=== PATIENT | male | born 1965 | race Caucasian/White ===

== ENCOUNTER 2017-11-25 11:51 | Emergency (ER) | payer BC ==
[2017-11-25] MEDS ORDERED: Ketamine 50 MG/ML VIAL ONE (13:37)
[2017-11-25] MEDS ORDERED: EPINEPHrine 1 MG/10 ML Abboject SYRINGE ONE (13:42)
--- NOTE | 2017-11-25 13:47 | CT ---
CT OF THE BRAIN WITHOUT CONTRAST: Date: 11/25/17 The ventricles are normal in size for age and show no shift. No intracranial bleeding or extra-axial hematoma present. There is no sign of mass, edema, or stroke. The skull appears intact. The visible p aranasal sinuses, sphenoid sinus, and mastoid air cells are clear. IMPRESSION: No acute intracranial findings. POS: HOME
--- NOTE | 2017-11-25 13:50 | CT ---
CT OF THE CERVICAL SPINE: Date: 11/25/[address] of the cervical spine was done following trauma. Axial slices were acquired, then coronal a nd sagittal reconstructions were done. FINDINGS: No fracture, dislocation, or disc space narrowing seen at any cervical level. The C1 to dens distance is normal and the soft tissues are normal in thickness. There is a mild central bulge of the C5-C6 d isc, which does not appear to cause significant impingement. The other soft tissue structures of the neck show no acute findings. IMPRESSION: 1. No acute traumatic changes. 2. Mild central bulge of the C5-C6 disc. POS: HOME
[2017-11-25] MEDS ORDERED: Bacitracin Zinc 1 Packet ONE (14:21)
== END 2017-11-25 14:27 | disposition home or self-care (01) ==
LOC: BURERS 11:51
DX: S01.01XA Laceration without foreign body of scalp, initial encounter (principal); F17.210 Nicotine dependence, cigarettes, uncomplicated; W45.8XXA Other foreign body or object entering through skin, initial encounter
CPT/HCPCS: 12002; 70450; 72125; J0171

== ENCOUNTER 2021-11-29 21:44 | Emergency (ER) | payer BC ==
[2021-11-29] MEDS ORDERED: Boostrix 0.5 ML (Tdap) VIAL ONE (22:17)
[2021-11-29 22:23] LABS: INR-International Normal Ratio 0.9; Prothrombin Time 12.1 sec (12.0-14.7)
[2021-11-29 22:24] LABS: PTT 27.8 sec (22.9-36.1)
[2021-11-29 22:28] LABS: Hemoglobin 14.8 g/dL (14.0-18.0); Mean Corpuscular HGB CONC 35.4 g/dL (32.0-36.0); Mean Corpuscular Hemoglobin 32.9 pg (27.0-31.0); Mean Corpuscular Volume 92.8 fL (78.0-98.0); Mean Platelet Volume 7.6 fL (7.4-10.4); Platelet Count 159 thou/uL (130-400); RBC Distribution Width 11.6 % (11.5-14.5); White Blood Cell (WBC) Count 4.5 thou/uL (4.8-10.8)
[2021-11-29 22:32] LABS: ALT (SGPT) 58 U/L (8-55); AST (SGOT) 52 U/L (5-34); Albumin 4.4 g/dL (3.5-5.0); Alkaline Phosphatase 111 U/L (40-110); Anion Gap 20 mmol/L (10-20); BUN (Urea Nitrogen) 11 mg/dL (8.4-25.7); Bilirubin, Total 0.6 mg/dL (0.2-1.2); CK (CPK) 249 U/L (30-200); Calc. Creatinine Clearance 0 mL/min (70-130); Carbon Dioxide 22 mmol/L (22-29); Chloride 100 mmol/L (98-107); Globulin 3.6 g/dL (2.4-3.5); Glucose 106 mg/dL (70-105); Potassium 3.7 mmol/L (3.5-5.1); Sodium 138 mmol/L (136-145)
[2021-11-29 23:12] LABS: Eosinophils 6 % (0-10); Lymphocytes 23 % (21-51); MDiff Complete? YES; Monocytes 16 % (0-10); Neutrophil 55 % (42-75); Platelet Morphology Comment Appears Adequate; RBC Morphology Normal
[2021-11-30 04:31] LABS: INR-International Normal Ratio 0.9; PTT 28.7 sec (22.9-36.1); Prothrombin Time 12.3 sec (12.0-14.7)
[2021-11-30 04:39] LABS: Mean Corpuscular HGB CONC 35.6 g/dL (32.0-36.0); Mean Corpuscular Volume 92.8 fL (78.0-98.0); Mean Platelet Volume 6.9 fL (7.4-10.4); Platelet Count 141 thou/uL (130-400); Red Blood Cell (RBC) Count 4.54 mill/uL (4.70-6.10)
[2021-11-30] MEDS ORDERED: Bacitracin 1 PK ONE (04:51)
[2021-11-30 05:09] LABS: Eosinophils 7 % (0-10); Lymphocytes 26 % (21-51); MDiff Complete? YES; Monocytes 19 % (0-10); Neutrophil 46 % (42-75); Platelet Morphology Comment Appears Adequate; RBC Morphology Normal
== END 2021-11-30 05:09 | disposition home or self-care (01) ==
LOC: BURERS 21:44
DX: T63.061A Toxic effect of venom of other North and South American snake, accidental (unintentional), initial encounter (principal); F17.210 Nicotine dependence, cigarettes, uncomplicated; Z23 Encounter for immunization
CPT/HCPCS: 36415; 80053; 82550; 85025; 85384; 85610; 85730; 90471; 90715